=== PATIENT | female | born 1980 | race Caucasian/White ===

== ENCOUNTER 2016-05-04 19:45 | Inpatient (IN) | payer OTHER ==
--- NOTE | ~2016-05-04 | HP ---
History And Physical [address] [place]. [address] NAME: LAON LIU : 80 STATUS : ADM IN [facility]#: [id number] AGE: 36 ADM/REG DATE : 05/04/16 MR#: [id number] REPORT SERV DATE: 05/05/16 DICTATED BY: JERRELL GUERRA DATE: 05/05/16 REPORT STATUS : Draft TRANSCRIBED BY: MODL DATE: 05/05/16 DATE OF ADMISSION: 05/04/2016 CHIEF COMPLAINT: A 36-year-old female presenting with extreme weakness, uncontrolled blood sugars, and evidence of a large left-sided pneumonia. HISTORY OF PRESENTING ILLNESS: The patient's history was obtained through careful interview with the patient and . Apparently in early April 2016, the patient developed weakness and illness. She went to [facility] on 04/26/2016, was told that she had "a virus," and was discharged from the emergency department at that time with no specific treatment. But over last few days, she has become increasingly weak, stating "I can't walk, I can't eat, I can do hardly nothing." She has had nausea and vomiting. She has had difficulty keeping anything down, but has had extreme thirst. Apparently, she has only been able to drink orange juice and wine punch because of this. She has been noncompliant with her diabetes management and has at times noticed blood sugars in the 400s and 500s though. She describes the cough increasingly productive of yellow sputum, associated with dyspnea on exertion. She has also had chest discomfort exacerbated by coughing, mostly in the left lower lung that radiates to the back, a 6/10 severity. She describes a slight headache that is actually resolved today. She has had a slight sore throat. She has noticed some abdominal distention and discomfort as well that seems to be worsened by her nausea. She has a slight psoriasis breakout on her left lower leg around her calf, but has not noticed any psoriatic arthritis changes now. She describes loose bowel movements. REVIEW OF SYSTEMS: Otherwise, a 14-point review of systems was obtained and was negative. PAST MEDICAL HISTORY: 1. Diabetes. 2. Depression. 3. Hypothyroidism. 4. Elevated cholesterol. 5. Bronchitis. 6. Psoriatic arthritis. History And Physical [address] [place]. [address] NAME: LOAN LIU : 80 STATUS : ADM IN PAT#: [id number] AGE: 36 ADM/REG DATE : 05/04/16 MR#: [id number] REPORT SERV DATE: 05/05/16 DICTATED BY: JERRELL GUERRA DATE: 05/05/16 REPORT STATUS : Draft TRANSCRIBED BY: MATTIE DATE: 05/05/16 PAST SURGICAL HISTORY: . ALLERGIES: TO RED DYE. SOCIAL HISTORY: She is . The patient is disabled. She has a 5-year-old daughter. She and her live in [place], [place]. No tobacco abuse history. No alcohol use. FAMILY HISTORY: Psoriasis, diabetes, father with heart disease. Mother with obstructive sleep apnea and COPD. CURRENT MEDICATIONS: Include Neurontin 300 mg p.o. t.i.d., glipizide 10 mg p.o. b.i.d., levothyroxine 25 mcg p.o. daily, Mobic 15 mg as needed, Glucophage 1000 mg p.o. b.i.d., naproxen p.r.n., Phenergan, Zocor 10 mg p.o. daily, Wellbutrin, Haldol?, Abilify, Prozac. PHYSICAL EXAMINATION: VITAL SIGNS: Temperature 97.4, pulse 119, blood pressure 124/71, respiratory rate 18, O2 saturation 89% on room air. GENERAL: Somewhat toxic appearing female, very diaphoretic and ill in appearance. HEENT: Pupils equal, round, and reactive to light. No conjunctival pallor. No scleral icterus. Nares are patent. Oropharynx is clear of obstruction. Dry mucous membranes. NECK: Trachea midline. No thyromegaly. LYMPH: No cervical lymphadenopathy. No supraclavicular lymphadenopathy. RESPIRATORY: The patient has diminished breath sounds throughout her left lung and in the left lung, there seems to be focal egophony. She has some slight scattered wheezes as well and scattered upper respiratory rhonchi. No appreciable rales. The patient has quite labored respiratory effort. CARDIOVASCULAR: Tachycardic. Regular rhythm. No murmurs, rubs, or gallops. No extremity edema is appreciated. ABDOMEN: The patient has a central pattern of morbid obesity. Even a cushingoid appearance, but a nontender abdomen on my exam, no distention, no hepatosplenomegaly could be appreciated. DERMATOLOGICAL: Diaphoretic, warm. EXTREMITIES: No pallor. No cyanosis. PSYCHIATRIC: Flat affect, but claims to be in a good mood. She is alert and oriented x3. LABORATORY DATA: White blood count 28.8 with 16% bands, hemoglobin 11, hematocrit 34, platelets 523. Sodium 127, potassium 3.8, chloride 86, bicarb 27, BUN 17, creatinine 1.2, glucose 775, lactic acid 2.9, albumin 1.8. Procalcitonin 5.35, AST 54, ALT 76, alkaline phosphatase 234. Acetone level is negative. Urinalysis negative for infection. ABG demonstrates pH 7.45, PaCO2 of 40, PaO2 of 65, and a bicarb of 27 on 2 L nasal cannula. STUDIES: 1. Chest x-ray by my own evaluation shows a large dense left lower lung pneumonia, possible associated effusion as well? 2. EKG by my own evaluation shows sinus tachycardia. History And Physical [address] [address] NAME: LOAN LIU : 80 STATUS : ADM IN [facility]#: [id number] AGE: 36 ADM/REG DATE : 05/04/16 MR#: [id number] REPORT SERV DATE: 05/05/16 DICTATED BY: JERRELL GUERRA DATE: 05/05/16 REPORT STATUS : Draft TRANSCRIBED BY: MATTIE DATE: 05/05/16 ASSESSMENT AND PLAN: 1. Severe sepsis. She has elevated lactic acid to 2.9. White blood cell count of 28.8, 16% bands, tachycardia, hypoxia. Check blood cultures. Place on broad IV antibiotics and now will include Rocephin, azithromycin, and vancomycin. 2. Acute community acquired pneumonia. Check blood cultures. Place on IV antibiotics. Possible pleural effusion? Check CT scan of the chest on the morning of 05/05/2016. 3. Hyperosmolar non-ketotic hyperglycemic state. We will place on IV fluids, insulin drip IV. Check hemoglobin A1c. Obtain a nurses educator consult. 4. Morbid obesity. Looks cushingoid. May consider a 24-hour urine cortisol? 5. Hypoalbuminemia, quite severe. I would like to check a 24-hour urine protein study. 6. Psoriatic arthritis, but not on specific treatment for this. KPL/MODL Jerrell Guerra M.D. / [id number] CC: Fran Alexander SHEENA
--- NOTE | ~2016-05-04 | DS ---
Discharge Summary [facility] [address] [place]. [address] NAME: LOAN LIU : 80 STATUS : DIS IN PAT#: [id number] AGE: 36 ADM/REG DATE : 05/04/16 MR#: [id number] REPORT SERV DATE: 05/09/16 DICTATED BY: TIMUR GLEZ DATE: 05/08/16 REPORT STATUS : Draft TRANSCRIBED BY: MODL DATE: 05/08/16 ADMISSION DATE: 05/04/2016 DISCHARGE DATE: 05/08/2016 REASON FOR ADMISSION: This is a 36-year-old female presenting with extreme weakness, uncontrolled blood sugars, and evidence of a large left-sided pneumonia. The patient had in early part of the month developed weakness and illness. She went to [facility], had been told she had a virus, was discharged to home with no specific treatment. Over the last few days prior to admission, she had become increasingly weak stating "I cannot walk, I cannot eat, I can barely do anything." In the emergency room, the patient would have a chest x-ray that would show some large dense left lower lung pneumonia with possible effusion. She would be admitted for sepsis and left lower lung pneumonia. DISCHARGE DIAGNOSES: 1. Left Streptococcal pneumonia. 2. Uncontrolled diabetes, A1c 12.0. 3. Morbid obesity. 4. Anemia. 5. Hypothyroid. 6. Psoriatic arthritis. 7. Depression and psych disorder. HOSPITAL COURSE: 1. Streptococcal pneumonia. The patient would be admitted and started on IV Rocephin and azithromycin for community-acquired pneumonia. Her Streptococcal pneumoniae antigen would return positive and she would be converted to IV Levaquin. Her white blood cell count on admission was 28.8 and has since trended down to 11.8. She has been afebrile here at the hospital. Her cough which was quite severe and very productive on admission is now much less severe and has minimal sputum production of white mucus. She was on oxygen 2 L on admission, she has been since been weaned off oxygen. Her procalcitonin which was 5.35 on admission has trended down to 0.37. She has been converted to oral Levaquin and will need to complete four more doses to complete her one-week course. She has been given a prescription for that. 2. Uncontrolled diabetes with A1c of 12.0. The patient at home was on glipizide and metformin. Clearly, not controlling her blood sugars. Here at the hospital, we have started her on a regimen of Levemir 30 units b.i.d. and NovoLog 10 units subcu before meals. t.i.d. and sliding scale insulin level 1. Her blood sugars were well controlled here at the hospital. We will continue her on that at home. 3. Anemia. Did check iron panel on her and ferritin was within normal limits. Her hemoglobin is stable at 10.4. DISCHARGE CONDITION: Stable. DISCHARGE MEDICATIONS: 1. Metformin 1000 mg p.o. b.i.d. 2. Mobic 15 mg p.o. p.r.n. daily. Discharge Summary [address] [address] NAME: LOAN LIU : 80 STATUS : DIS IN PAT#: [id number] AGE: 36 ADM/REG DATE : 05/04/16 MR#: [id number] REPORT SERV DATE: 05/09/16 DICTATED BY: TIMUR GLEZ DATE: 05/08/16 REPORT STATUS : Draft TRANSCRIBED BY: MATTIE DATE: 05/08/16 3. Gabapentin 300 mg p.o. t.i.d. 4. Levothyroxine 25 mcg p.o. daily. 5. Naproxen 500 mg p.o. b.i.d. p.r.n. 6. Zocor 10 mg p.o. q.h.s. 7. Wellbutrin 200 mg p.o. b.i.d. 8. Haldol 2 mg p.o. b.i.d. 9. Abilify 30 mg p.o. daily. 10.Prozac 60 mg p.o. daily. 11.Cogentin 2 mg p.o. daily. 12.Humalog 10 units subcu before meals t.i.d. 13.Humalog sliding scale level 1. 14.Levemir 30 units subcu b.i.d. 15.Levaquin 750 mg p.o. daily. DISCHARGE PLAN: The patient is discharged to home. Follow up with her primary care, Francisca Ramirez in one to two weeks regarding new administration of insulin as well as pneumonia. We will also have home health make a visit to her home regarding insulin administration. TDR/MODL Timur Glez APN / [id number] CC: Fran Alexander SHEENA
[2016-05-04 18:56] LABS: BASOPHILS 0.2 %; BASOPHILS ABSOLUTE 0.05 10/3/uL (0.0-0.16); EOSINOPHILS 0.1 %; EOSINOPHILS ABSOLUTE 0.04 10/3/uL (0.0-0.53); HEMATOCRIT 33.9 % (36.0-48.0); HEMOGLOBIN 10.8 g/dL (12.0-16.0); IMMATURE GRANULOCYTES 2.9 %; IMMATURE GRANULOCYTES ABSOLUTE 0.83 10/3/uL (0.0-0.11); LYMPHOCYTES 4.7 %; LYMPHOCYTES ABSOLUTE 1.34 10/3/uL (0.67-4.30); MEAN CORPUS HGB CONC 31.9 g/dL (32.0-36.0); MEAN CORPUSCULAR HEMOGLOB 25.7 pg (26.0-34.0); MEAN CORPUSCULAR VOLUME 80.7 fL (80-100); MONOCYTES 4.3 %; MONOCYTES ABSOLUTE 1.25 10/3/uL (0.21-1.20); NEUTROPHILS 87.8 %; NEUTROPHILS ABSOLUTE 25.25 10/3/uL (2.02-8.40); PLATELET COUNT 523 10/3/uL (150-400)
[2016-05-04 18:59] LABS: ER CBC TAT 0 Hrs 11 Mins; WHITE BLOOD CELLS 28.8 10/3/uL (4.5-10.5)
[2016-05-04 19:01] LABS: MANUAL DIFF NO %
[2016-05-04 19:09] LABS: A/G RATIO 0.3 (0.7-1.9); ALBUMIN 1.8 G/DL (3.5-5.0); ALKALINE PHOSPHATASE 234 U/L (45-117); BUN (BLOOD UREA NITROGEN) 17 MG/DL (6-23); CALCIUM, SERUM 8.2 MG/DL (8.5-10.4); CHLORIDE, SERUM 86 MMOL/L (96-112); CO2 (CARBON DIOXIDE) 27 MMOL/L (24-34); GFR AFRICAN AMERICAN 67 ML/MIN (>=60); GFR NON AFRICAN AMERICAN 58 ML/MIN (>=60); GLOBULIN 5.7 G/DL (2.5-4.1); POTASSIUM, SERUM 3.8 MMOL/L (3.5-5.3); SGOT(AST) 54 U/L (5-40); SGPT(ALT) 76 U/L (5-65); SODIUM, SERUM 127 MMOL/L (135-148); TOTAL BILIRUBIN 0.7 MG/DL (0-1.2); TOTAL PROTEIN 7.5 G/DL (6.0-8.5)
[2016-05-04 19:11] LABS: GLUCOSE, SERUM 775 MG/DL (60-99)
[2016-05-04 19:18] LABS: BAND NEUTROPHILS 16 %; ER DIFF TAT 0 Hrs 30 Mins; LYMPHOCYTES 10 %; LYMPHOCYTES ABSOLUTE (CALC) 2.88 10/3/uL (0.67-4.30); MONOCYTES 2 %; MONOCYTES ABSOLUTE (CALC) 0.58 10/3/uL (0.21-1.20); NEUTROPHILS ABSOLUTE (CALC) 25.34 10/3/uL (2.02-8.40); SEGMENTED NEUTROPHIL (0) 72 %; TOTAL NUCLEATED CELLS 100
[2016-05-04 19:19] LABS: PLATELET ESTIMATE SLT INC (ADEQUATE); RBC MORPHOLOGY NORM (NORMAL); TOXIC GRANULATION 1+
[2016-05-04 19:28] LABS: ASCORBIC ACID (UR NOT ORDER) NEG (NEG); BILIRUBIN, URINE NEGATIVE (NEG); ER URINALYSIS TAT 0 Hrs 09 Mins; KETONE, URINE NEGATIVE (NEG); LEUKOCYTE ESTERASE(NOT OR NEG (NEG); NITRITE (URINE) NEG (NEG); WBC (NOT ORDERED) (RFLEX) 3 (0-5)
[2016-05-04 19:36] LABS: INFLUENZA A SCREEN NEGATIVE (NEGATIVE); INFLUENZA B SCREEN NEGATIVE (NEGATIVE)
[2016-05-04 19:59] LABS: PROCALCITONIN 5.35 ng/mL (<0.5)
[2016-05-04 20:06] LABS: ACETONE NEG
[2016-05-04 20:11] LABS: LACTATE 2.9 MMOL/L (0.3-2.4)
[2016-05-04] MEDS ORDERED: MOBIC15 MG PO (20:54)
[2016-05-04] MEDS ORDERED: GLUCOTRO10 PO (20:54)
[2016-05-04] MEDS ORDERED: GLUCOPHAGE1000 MG PO (20:54)
[2016-05-04] MEDS ORDERED: NEUR300 PO (20:54)
[2016-05-04] MEDS ORDERED: WELLBUTRIN200 MG PO (20:55)
[2016-05-04] MEDS ORDERED: LEVOTHYROXIN25 MCG PO (20:55)
[2016-05-04] MEDS ORDERED: NAP500 PO (20:55)
[2016-05-04] MEDS ORDERED: ZOCOR10 PO (20:55)
[2016-05-04] MEDS ORDERED: PR25 PO (20:56)
[2016-05-04] MEDS ORDERED: PROZAC PO (20:56)
[2016-05-04] MEDS ORDERED: ABILIFY30 MG PO (20:56)
[2016-05-04] MEDS ORDERED: H2 PO (20:56)
[2016-05-04] MEDS ORDERED: *UNABLE1 (20:57)
[2016-05-05 06:41] LABS: INTERNATIONAL NORMAL RATI 1.2 UNITS (-); PARTIAL THROMBO TIME 28.3 SEC (22.5-37.2); PROTIME (NOT ORD) 14.8 SEC (12.0-14.5)
[2016-05-05 06:49] LABS: HEMOGLOBIN 9.3 g/dL (12.0-16.0); MEAN CORPUS HGB CONC 32.5 g/dL (32.0-36.0); MEAN CORPUSCULAR VOLUME 79.9 fL (80-100); MEAN PLATELET VOLUME 9.6 fL (9.2-13.0); NUCLEATED RED BLOOD CELLS 0.3 /100WBC (0-0); PLATELET COUNT 454 10/3/uL (150-400); RBC DISTRIBUTION WIDTH 15.6 % (12.0-16.0); RED CELL COUNT 3.58 10/6/uL (4.0-5.6); WHITE BLOOD CELLS 22.8 10/3/uL (4.5-10.5)
[2016-05-05 06:58] LABS: HEMATOCRIT 28.6 % (36.0-48.0); MANUAL DIFF YES %
[2016-05-05 07:04] LABS: CALCIUM, SERUM 8.3 MG/DL (8.5-10.4); CO2 (CARBON DIOXIDE) 30 MMOL/L (24-34); PHOSPHORUS, SERUM 2.5 MG/DL (2.5-4.5); POTASSIUM, SERUM 3.3 MMOL/L (3.5-5.3); SGOT(AST) 28 U/L (5-40); SGPT(ALT) 52 U/L (5-65); SODIUM, SERUM 137 MMOL/L (135-148); TOTAL BILIRUBIN 0.5 MG/DL (0-1.2); TOTAL PROTEIN 7.3 G/DL (6.0-8.5); TROPONIN I <0.02 NG/ML (<0.05)
[2016-05-05 07:05] LABS: A/G RATIO 0.5 (0.7-1.9); ALBUMIN 2.5 G/DL (3.5-5.0); ALKALINE PHOSPHATASE 179 U/L (45-117); BUN (BLOOD UREA NITROGEN) 11 MG/DL (6-23); CHLORIDE, SERUM 96 MMOL/L (96-112); GFR AFRICAN AMERICAN 136 ML/MIN (>=60); GFR NON AFRICAN AMERICAN 117 ML/MIN (>=60); GLOBULIN 4.8 G/DL (2.5-4.1); GLUCOSE, SERUM 176 MG/DL (60-99)
[2016-05-05 07:42] LABS: BE (BASE EXCESS) 3.5 MEQ/L (0 +/- 2.5); CARBOXYHEMOGLOBIN 1.5 % (0-3); HCO3 (ACTUAL BICARBONATE) 27.8 MEQ/L (23-27); HEMOBLOGIN CONTENT 11.8 G/DL (12-16); INSTRUMENT SERIAL # 8087; METHEMOGLOBIN 0.3 % (0-3); O2 CONTENT 15.2 VOL% (18-24); PCO2 (CO2 TENSION) 41 MMHG (35-45); PO2 (O2 TENSION) 66 MMHG (79-93); pH 7.45 (7.37-7.43)
[2016-05-05 07:43] LABS: ALLENS TEST Pos; DEVICE NC; OPERATOR ID 334499; SAMPLE Arterial
[2016-05-05 07:55] LABS: BAND NEUTROPHILS 1 %; EOSINOPHILS 1 %; EOSINOPHILS ABSOLUTE (CALC) 0.23 10/3/uL (0.0-0.53); HYPOCHROMIA 1+ (3-10/OIF) (0-2/OIF); IMMATURE GRANS ABSOLUTE (CALC) 0.23 10/3/uL (0.0-0.11); LYMPHOCYTES 17 %; LYMPHOCYTES ABSOLUTE (CALC) 3.88 10/3/uL (0.67-4.30); METAMYELOCYTES 1 %; MONOCYTES 3 %; MONOCYTES ABSOLUTE (CALC) 0.68 10/3/uL (0.21-1.20); NEUTROPHILS ABSOLUTE (CALC) 17.78 10/3/uL (2.02-8.40); PLATELET ESTIMATE SLT INC (ADEQUATE); SEGMENTED NEUTROPHIL (0) 77 %; TOTAL NUCLEATED CELLS 100
[2016-05-05 07:56] LABS: MICROCYTES 1+ (5-10/OIF) (0-5/OIF); OVALOCYTES 1+ (3-10/OIF) (0-2/OIF)
[2016-05-05] MEDS ORDERED: COG2 PO (09:04)
[2016-05-06 02:45] LABS: HEMATOCRIT 30.4 % (36.0-48.0); HEMOGLOBIN 9.8 g/dL (12.0-16.0); MEAN CORPUS HGB CONC 32.2 g/dL (32.0-36.0); MEAN CORPUSCULAR HEMOGLOB 26.1 pg (26.0-34.0); MEAN CORPUSCULAR VOLUME 80.9 fL (80-100); MEAN PLATELET VOLUME 9.5 fL (9.2-13.0); NUCLEATED RED BLOOD CELLS 0.3 /100WBC (0-0); PLATELET COUNT 466 10/3/uL (150-400); RBC DISTRIBUTION WIDTH 15.9 % (12.0-16.0); RED CELL COUNT 3.76 10/6/uL (4.0-5.6)
[2016-05-06 02:46] LABS: MANUAL DIFF YES %
[2016-05-06 02:56] LABS: % IRON SAT 23 % (20-50); BUN (BLOOD UREA NITROGEN) 11 MG/DL (6-23); CALCIUM, SERUM 8.1 MG/DL (8.5-10.4); CHLORIDE, SERUM 99 MMOL/L (96-112); CO2 (CARBON DIOXIDE) 28 MMOL/L (24-34); CREATININE 0.66 MG/DL (0.55-1.02); FERRITIN 251 NG/ML (8-252); GFR AFRICAN AMERICAN 132 ML/MIN (>=60); GFR NON AFRICAN AMERICAN 114 ML/MIN (>=60); IRON BINDING CAPACITY 190 MCG/DL (225-410); IRON, SERUM 44 MCG/DL (35-150); POTASSIUM, SERUM 3.8 MMOL/L (3.5-5.3); SODIUM, SERUM 136 MMOL/L (135-148)
[2016-05-06 03:02] LABS: GLUCOSE, SERUM 269 MG/DL (60-99)
[2016-05-06 04:20] LABS: BAND NEUTROPHILS 8 %; IMMATURE GRANS ABSOLUTE (CALC) 0.75 10/3/uL (0.0-0.11); LYMPHOCYTES 10 %; METAMYELOCYTES 5 %; MONOCYTES 7 %; MONOCYTES ABSOLUTE (CALC) 1.05 10/3/uL (0.21-1.20); PLATELET ESTIMATE SLT INC (ADEQUATE); RBC MORPHOLOGY NORM (NORMAL); SEGMENTED NEUTROPHIL (0) 70 %; TOTAL NUCLEATED CELLS 100
[2016-05-06 08:05] LABS: T.V. 24HR UR (NOT ORD) 3550 ML (600-1600)
[2016-05-06 08:11] LABS: T.P. URINE (NOT ORDER RAN 54.2 MG/DL; T.P.24HR UR (NOT ORDER) 1924 MG/24HR (40-150)
[2016-05-07 05:31] LABS: HEMATOCRIT 30.1 % (36.0-48.0); HEMOGLOBIN 9.4 g/dL (12.0-16.0); MEAN CORPUS HGB CONC 31.2 g/dL (32.0-36.0); MEAN CORPUSCULAR HEMOGLOB 25.6 pg (26.0-34.0); MEAN PLATELET VOLUME 9.4 fL (9.2-13.0); PLATELET COUNT 472 10/3/uL (150-400); RBC DISTRIBUTION WIDTH 16.3 % (12.0-16.0); RED CELL COUNT 3.67 10/6/uL (4.0-5.6); WHITE BLOOD CELLS 12.3 10/3/uL (4.5-10.5)
[2016-05-07 05:37] LABS: MANUAL DIFF YES %
[2016-05-07 05:38] LABS: BUN (BLOOD UREA NITROGEN) 9 MG/DL (6-23); CALCIUM, SERUM 8.3 MG/DL (8.5-10.4); CHLORIDE, SERUM 103 MMOL/L (96-112); CO2 (CARBON DIOXIDE) 29 MMOL/L (24-34); CREATININE 0.48 MG/DL (0.55-1.02); GFR AFRICAN AMERICAN 146 ML/MIN (>=60); GFR NON AFRICAN AMERICAN 126 ML/MIN (>=60); SODIUM, SERUM 141 MMOL/L (135-148)
[2016-05-07 05:39] LABS: GLUCOSE, SERUM 107 MG/DL (60-99)
[2016-05-07 06:17] LABS: BAND NEUTROPHILS 7 %; EOSINOPHILS 1 %; EOSINOPHILS ABSOLUTE (CALC) 0.12 10/3/uL (0.0-0.53); IMMATURE GRANS ABSOLUTE (CALC) 0.74 10/3/uL (0.0-0.11); LYMPHOCYTES 29 %; LYMPHOCYTES ABSOLUTE (CALC) 3.57 10/3/uL (0.67-4.30); METAMYELOCYTES 6 %; MONOCYTES 3 %; MONOCYTES ABSOLUTE (CALC) 0.37 10/3/uL (0.21-1.20); PLATELET ESTIMATE SLT INC (ADEQUATE); RBC MORPHOLOGY NORM (NORMAL); SEGMENTED NEUTROPHIL (0) 54 %; TOTAL NUCLEATED CELLS 100
[2016-05-08 08:14] LABS: HEMOGLOBIN 10.7 g/dL (12.0-16.0); MEAN CORPUSCULAR HEMOGLOB 25.6 pg (26.0-34.0); MEAN CORPUSCULAR VOLUME 82.5 fL (80-100); MEAN PLATELET VOLUME 8.9 fL (9.2-13.0); PLATELET COUNT 479 10/3/uL (150-400); RBC DISTRIBUTION WIDTH 16.3 % (12.0-16.0); RED CELL COUNT 4.18 10/6/uL (4.0-5.6); WHITE BLOOD CELLS 11.8 10/3/uL (4.5-10.5)
[2016-05-08 08:16] LABS: HEMATOCRIT 34.5 % (36.0-48.0); MANUAL DIFF YES %
[2016-05-08 08:27] LABS: BUN (BLOOD UREA NITROGEN) 8 MG/DL (6-23); CHLORIDE, SERUM 102 MMOL/L (96-112); CO2 (CARBON DIOXIDE) 30 MMOL/L (24-34); CREATININE 0.47 MG/DL (0.55-1.02); GFR AFRICAN AMERICAN 147 ML/MIN (>=60); GFR NON AFRICAN AMERICAN 127 ML/MIN (>=60); GLUCOSE, SERUM 114 MG/DL (60-99); POTASSIUM, SERUM 4.3 MMOL/L (3.5-5.3); SODIUM, SERUM 141 MMOL/L (135-148)
[2016-05-08 08:41] LABS: BAND NEUTROPHILS 6 %; EOSINOPHILS 3 %; EOSINOPHILS ABSOLUTE (CALC) 0.35 10/3/uL (0.0-0.53); IMMATURE GRANS ABSOLUTE (CALC) 1.18 10/3/uL (0.0-0.11); LYMPHOCYTES 24 %; LYMPHOCYTES ABSOLUTE (CALC) 2.83 10/3/uL (0.67-4.30); METAMYELOCYTES 5 %; MONOCYTES 6 %; MONOCYTES ABSOLUTE (CALC) 0.71 10/3/uL (0.21-1.20); MYELOCYTES 5 %; NEUTROPHILS ABSOLUTE (CALC) 6.73 10/3/uL (2.02-8.40); PLATELET ESTIMATE INC (ADEQUATE); SEGMENTED NEUTROPHIL (0) 51 %; TOTAL NUCLEATED CELLS 100
[2016-05-08 08:42] LABS: RBC MORPHOLOGY NORM (NORMAL)
[2016-05-08 09:41] LABS: PROCALCITONIN 0.37 ng/mL (<0.5)
[2016-05-08] MEDS ORDERED: HUMALOG SC ×2 (11:05→11:06)
[2016-05-08] MEDS ORDERED: LEVEMIR SC (11:08)
[2016-05-08] MEDS ORDERED: LEVAQUIN750 MG PO (11:12)
== END 2016-05-08 15:45 | disposition home health service (06) | DRG 871 ==
LOC: ER 19:45 → 7NO 21:07
PROVIDERS: Emergency Medicine; Hospitalist; Internal Medicine; Nurse Practitioner; Nurse Practitioner Gerontology
DX: A40.9 Streptococcal sepsis, unspecified (principal); J15.4 Pneumonia due to other streptococci; Z68.42 Body mass index [BMI] 45.0-49.9, adult; L40.50 Arthropathic psoriasis, unspecified; R65.20 Severe sepsis without septic shock; E11.65 Type 2 diabetes mellitus with hyperglycemia; F32.9 Major depressive disorder, single episode, unspecified; E03.9 Hypothyroidism, unspecified; E78.00 Pure hypercholesterolemia, unspecified; E66.01 Morbid (severe) obesity due to excess calories; D64.9 Anemia, unspecified
CPT/HCPCS: 36600; 71020; 71250; 80048; 80053; 81001; 81050; 82009; 82533; 82728; 82805; 82962; 83036; 83540; 83550; 83605; 83735; 84100; 84132; 84145; 84156; 84443; 84484; 84703; 85025; 85610; 85730; 86308; 87040; 87449; 87804; 93005; 94640; 96365; 96375; 99285; A9270-GY; J0456; J1956; J3370; P9047